=== PATIENT | female | born 1980 | race American Indian/Alaskan Native ===

== ENCOUNTER 2017-01-19 12:26 | Emergency (ER) | payer MEDICAID ==
[2017-01-19 12:26] VITALS: BMI 24.3
[2017-01-19 13:30] LABS: BASO # 0.1 K/uL (0.0-0.2); BASO % 1.4 % (0.0-2.0); EOS # 0.1 K/uL (0.0-0.7); EOS % 1.7 % (0.0-4.0); HEMATOCRIT 36.7 % (34.0-47.0); LYMPH # 1.7 K/uL (1.0-4.3); MEAN CELL VOLUME 68.3 fL (81.0-99.0); MEAN CORPUSCULAR HEMOGLOBIN 21.5 pg (27.0-31.0); MEAN CORPUSCULAR HGB CONC 31.5 g/dL (33.0-37.0); MEAN PLATELET VOLUME 9.5 fL (7.2-11.7); MONO # 0.6 K/uL (0.0-0.8); MONO % 7.4 % (0.0-10.0); RED CELL DISTRIBUTION WIDTH 16.2 % (11.5-14.5); WHITE BLOOD COUNT 7.6 K/uL (4.8-10.8)
[2017-01-19 13:41] LABS: RBC URINE 1 /hpf (0-3); URINE BACTERIA RARE (<OCC); URINE BILIRUBIN NEGATIVE (NEGATIVE); URINE BLOOD NEGATIVE (NEGATIVE); URINE COLOR Yellow (YELLOW); URINE GLUCOSE (UA) NORMAL (Normal); URINE KETONE NEGATIVE (NEGATIVE); URINE LEUKOCYTE ESTERASE NEG Leu/uL (Negative); URINE PROTEIN NEGATIVE (NEGATIVE); URINE UROBILINOGEN NORMAL mg/dL (0.2-1.0); WBC URINE 1 /hpf (0-5)
[2017-01-19 13:44] LABS: CHLORIDE 103 mmol/L (98-107); POTASSIUM 3.5 mmol/L (3.6-5.2); SODIUM 136 mmol/L (132-148)
[2017-01-19 13:46] LABS: AST/SGOT 21 U/L (14-36); BILIRUBIN,TOTAL 1.1 mg/dL (0.2-1.3); CARBON DIOXIDE 22 mmol/L (22-30); GFR AFRICAN-AMERICAN > 60
[2017-01-19 13:47] LABS: ALB/GLOB RATIO 1.4 (1.0-2.1); ALKALINE PHOSPHATASE 48 U/L (38-126); ALT/SGPT 31 U/L (9-52); BLOOD UREA NITROGEN 9 mg/dL (7-17); CALCIUM 8.9 mg/dl (8.6-10.4); GLUCOSE,RANDOM 81 mg/dL (65-105); TOTAL PROTEIN 7.3 g/dL (6.3-8.3)
[2017-01-19 15:13] VITALS: BP 126/72; PULSE 76; RESP 16; TEMP 97.7; O2SAT 99
--- NOTE | 2017-01-19 15:20 | C.PDOC ---
History Of Present Illness 36 yr old female, , presents to the ER with complaints of pelvic pain and right upper abdominal pain. Patient reports she is but has not had a US yet. Patient reports she believes the pain is secondary to gas. Denies nausea , vomiting, dysuria, vaginal discharge or vaginal bleeding. Time Seen by Provider: 01/19/17 13:41 Chief Complaint (Nursing): Abdominal Pain History Per: Patient History/Exam Limitations: no limitations Onset/Duration Of Symptoms: Days Past Medical History Reviewed: Historical Data, Nursing Documentation, Vital Signs Vital Signs: Last Vital Signs Temp 97.7 F 01/19/17 15:10 Pulse 76 01/19/17 15:10 Resp 16 01/19/17 15:10 BP 126/72 01/19/17 15:10 Pulse Ox 99 01/19/17 16:01 Family History: States: No Known Family Hx - Social History Hx Alcohol Use: No Hx Substance Use: No - Immunization History Hx Tetanus Toxoid Vaccination: Yes Hx Influenza Vaccination: Yes Hx Pneumococcal Vaccination: No Review Of Systems Except As Marked, All Systems Reviewed And Found Negative. Gastrointestinal: Positive for: Abdominal Pain (Right upper abdominal pain ). Negative for: Nausea, Vomiting Genitourinary: Positive for: Pelvic Pain. Negative for: Dysuria, Vaginal Discharge, Vaginal Bleeding Physical Exam - Physical Exam Appears: Well, Non-toxic, No Acute Distress, Other (Eating doritos in ED. ) Skin: Warm, Dry, No Rash Head: Atraumatic, Normacephalic Eye(s): bilateral: Normal Inspection, EOMI Nose: Normal Oral Mucosa: Moist Chest: Symmetrical, No Tenderness Cardiovascular: Rhythm Regular, No Murmur Respiratory: Normal Breath Sounds, No Rales, No Rhonchi, No Wheezing Gastrointestinal/Abdominal: Soft, Tenderness (suprapubic tenderness), No Guarding, No Rebound Back: No CVA Tenderness, No Vertebral Tenderness Extremity: Normal ROM, No Swelling Neurological/Psych: Oriented x3, Normal Speech, Normal Motor ED Course And Treatment - Laboratory Results Result Diagrams: 01/19/17 13:25 01/19/17 13:25 O2 Sat by Pulse Oximetry: 99 - CT Scan/US US - Pelvic Other Rad Studies (CT/US): Read By Radiologist, Radiology Report Reviewed CT/US Interpretation: Pelvic ultrasound. History: . Pain. Comparison : None available. Technique: Real-time sonography was performed through the pelvis utilizing transabdominal and transvaginal techniques. Findings: Uterus : 11.1 x 6.6 x 7.9 centimeters. Anteverted. Cervix measures 4.25 centimeters. Intrauterine . Intrauterine gestational sac measures 1.22 centimeters corresponding to a gestational age of 5 weeks and 2 days. Yolk sac measures 2 millimeters. [place]-rump length measures 2.6 millimeters corresponding to a gestational age of 5 weeks and 6 days. heart rate of 92 beats per minute. No free fluid in the pelvic cul-de-sac. Right ovary: 3.9 x 2.6 x 3.2 centimeters. Normal flow. Left ovary: 3.3 x 1.9 x 3.0 centimeters. Normal flow. Impression: Intrauterine corresponding to a gestational age of approximately 5 weeks and 6 days by crown-rump length of 2.6 millimeters. heart rate of 92 beats per minute. Limited 1st trimester ultrasound for viability purposes only. Continued interval followup with serial ultrasound, serial HCG levels, and gynecological consultation would be helpful if clinically indicated. US - Abdomen Other Rad Studies (CT/US): Read By Radiologist, Radiology Report Reviewed CT/US Interpretation: HISTORY: Abdominal pain. COMPARISON: None. TECHNIQUE: Sonographic evaluation of the abdomen. FINDINGS: LIVER: Measures 17.8 cm. Normal echogenicity of the liver parenchyma. No mass. No intrahepatic bile duct dilatation. GALLBLADDER: Unremarkable. No gallstones. COMMON BILE DUCT: Measures 2.2 mm. No stones. No dilatation. PANCREAS: Visualized portions are preserved. Pancreatic tail not well visualized. RIGHT KIDNEY: Measures 9.9 x 3.6 x 5.1cm. Normal echogenicity. No calculus, mass, or hydronephrosis. LEFT KIDNEY: Somewhat limited visualization. Measures 11.7 x 5.8 x 5.8cm. Normal echogenicity. No calculus, mass, or hydronephrosis. SPLEEN: Normal in size and contour. No mass. AORTA: No aneurysmal dilatation. IVC: Unremarkable. OTHER FINDINGS: None. IMPRESSION: Unremarkable abdominal sonogram. Progress Note: PLAN: US - Abdomen & Pelvic, CBC, CMP, BETA HCG, Urinalysis & Tylenol PO. On re-evaluation, pain resolved. Pt requests to be discharge. No abd pain. Nontenderness. TOlerating PO. Results of labs and US given . insturcted outpt follow up as schedule in 3 days with OB. Disposition - Disposition Disposition: HOME/ ROUTINE Disposition Time: 15:35 Condition: STABLE Additional Instructions: Follow up with your primary medical doctor or clinic in 2-5 days for further evaluation. Return to the emergency department at any time if symptoms persist or worsen. Instructions: (ED) - Clinical Impression Clinical Impression: - PA / [employer] / Resident Statement MD/DO has reviewed & agrees with the documentation as recorded. - Scribe Statement The provider has reviewed the documentation as recorded by the Scribe Ambar Marcus All medical record entries made by the Angelesibmiguelito were at my direction and personally dictated by me. I have reviewed the chart and agree that the record accurately reflects my personal performance of the history, physical exam, medical decision making, and the department course for this patient. I have also personally directed, reviewed, and agree with the discharge instructions and disposition.
--- NOTE | 2017-01-19 15:34 | US ---
Pelvic ultrasound History: . Pain. Comparison: None available. Technique: Real-time sonography was performed through the pelvis utilizing transabdominal and transvaginal techniques. Findings: Uterus: 11.1 x 6.6 x 7.9 centimeters. Anteverted. Cervix measures 4.25 centimeters. Intrauterine . Intrauterine gestational sac measures 1.22 centimeters corresponding to a gestational age of 5 weeks and 2 days. Yolk sac measures 2 millimeters. [place]-rump length measures 2.6 millimeters corresponding to a gestational age of 5 weeks and 6 days. heart rate of 92 beats per minute. No free fluid in the pelvic cul-de-sac. Right ovary: 3.9 x 2.6 x 3.2 centimeters. Normal flow. Left ovary: 3.3 x 1.9 x 3.0 centimeters. Normal flow. Impression: Intrauterine corresponding to a gestational age of approximately 5 weeks and 6 days by crown-rump length of 2.6 millimeters. heart rate of 92 beats per minute. Limited 1st trimester ultrasound for viability purposes only. Continued interval followup with serial ultrasound, serial HCG levels, and gynecological consultation would be helpful if clinically indicated.
--- NOTE | 2017-01-19 15:37 | US ---
HISTORY: Abdominal pain COMPARISON: None. TECHNIQUE: Sonographic evaluation of the abdomen. FINDINGS: LIVER: Measures 17.8 cm. Normal echogenicity of the liver parenchyma. No mass. No intrahepatic bile duct dilatation. GALLBLADDER: Unremarkable. No gallstones. COMMON BILE DUCT: Measures 2.2 mm. No stones. No dilatation. PANCREAS: Visualized portions are preserved. Pancreatic tail not well visualized. RIGHT KIDNEY: Measures 9.9 x 3.6 x 5.1cm. Normal echogenicity. No calculus, mass, or hydronephrosis. LEFT KIDNEY: Somewhat limited visualization. Measures 11.7 x 5.8 x 5.8cm. Normal echogenicity. No calculus, mass, or hydronephrosis. SPLEEN: Normal in size and contour. No mass. AORTA: No aneurysmal dilatation. IVC: Unremarkable. OTHER FINDINGS: None. IMPRESSION: Unremarkable abdominal sonogram.
== END 2017-01-19 15:45 | disposition home or self-care (01) ==
LOC: C.ER 12:26
DX: O26.891 Other specified pregnancy related conditions, first trimester (principal); Z3A.01 Less than 8 weeks gestation of pregnancy